=== PATIENT | male | born 1960 ===

== ENCOUNTER 2017-07-08 06:47 | Day surgery (SDC) | payer MEDICAID ==
[2017-07-02 12:55] VITALS: BMI 38.9
[2017-07-08] MEDS ORDERED: Sodium Chloride 0.9% 1,000 ML IV SCH (08:45)
[2017-07-08] MEDS ORDERED: Propofol 10 mg/ml Inj (20 ML) ONE ×2 (08:48→09:24)
[2017-07-08] MEDS ORDERED: Midazolam 2 MG/2 ML VIAL ONE ×2 (08:49→09:39)
[2017-07-08 09:59] VITALS: O2SAT 95
[2017-07-08 10:55] VITALS: BP 119/74; PULSE 72; RESP 18; TEMP 97.9
== END 2017-07-08 11:27 | disposition home or self-care (01) ==
LOC: ENDO 06:47
PROVIDERS: ATTEND Internal Medicine
DX: K20.9 Esophagitis, unspecified (principal); K29.50 Unspecified chronic gastritis without bleeding; B96.81 Helicobacter pylori [H. pylori] as the cause of diseases classified elsewhere; K44.9 Diaphragmatic hernia without obstruction or gangrene; I85.00 Esophageal varices without bleeding; K57.30 Diverticulosis of large intestine without perforation or abscess without bleeding; K64.8 Other hemorrhoids; I10 Essential (primary) hypertension; E78.00 Pure hypercholesterolemia, unspecified
CPT/HCPCS: 43239; 45378; 88305; 88342; J2001; J2250; J2704; J3010; J7040 ×2